=== PATIENT | female | born 1960 | race Caucasian/White ===

== ENCOUNTER 2018-01-27 08:12 | Outpatient (CLI) | payer OTHER | END 2018-01-27 15:57 | disposition home or self-care (01) | LOC: TOM 08:12 | DX: R10.32 Left lower quadrant pain (principal); K57.30 Diverticulosis of large intestine without perforation or abscess without bleeding; Z80.0 Family history of malignant neoplasm of digestive organs ==

== ENCOUNTER 2018-02-01 23:43 | Emergency (ER) | payer OTHER ==
[~2018-02-01] VITALS: Ht 152.4 cm; Wt 86.2 kg
[2018-02-02] MEDS ORDERED: VERAPAMIL ER180 MG (00:32)
[2018-02-02] MEDS ORDERED: COZAAR50 MG (00:32)
[2018-02-02] MEDS ORDERED: CALAN80 MG (00:32)
[2018-02-02] MEDS ORDERED: LEVSIN/SL0.125 MG SL (06:54)
[2018-02-02] MEDS ORDERED: CIPRO500 MG PO (06:54)
== END 2018-02-02 | disposition home or self-care (01) ==
LOC: ER 23:43
DX: N39.0 Urinary tract infection, site not specified (principal); R10.12 Left upper quadrant pain

== ENCOUNTER 2018-05-02 08:57 | Outpatient (CLI) | payer OTHER ==
[~2018-05-02 08:57] MED LIST: CALAN80 MG; CIPRO500 MG PO; COZAAR50 MG; LEVSIN/SL0.125 MG SL; VERAPAMIL ER180 MG
== END 2018-05-02 09:01 | disposition home or self-care (01) ==
LOC: SONOGRAMA 08:57
DX: R10.10 Upper abdominal pain, unspecified (principal)